=== PATIENT | female | born 2000 | race Asian ===

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

== ENCOUNTER 2020-05-01 11:37 | Inpatient (IN) | payer OTHER ==
[~2020-05-01] VITALS: Ht 167.6 cm; Wt 65.6 kg
[2020-05-01 12:25] LABS: ANION GAP 11 mmol/L (5-15); CALCIUM 9.5 mg/dL (8.5-10.1); CHLORIDE 99 mmol/L (98-107); CREATININE 1.09 mg/dL (0.55-1.02)
[2020-05-01 12:47] LABS: ACETONE, SERUM Large (80mg/dL) (Negative)
[2020-05-01 13:08] LABS: MICROSCOPIC AUTO
--- NOTE | 2020-05-01 13:18 | NUR ---
IV FLUIDS INFUSING AT THIS TIME
[2020-05-01 13:20] LABS: BASOPHILS # (AUTO) 0.03 x10^3/uL (0-0.1); BASOPHILS % (AUTO) 0 % (0-1); EOSINOPHILS # (AUTO) 0.06 x10^3/uL (0-0.4); EOSINOPHILS % (AUTO) 1 % (1-7); LYMPHOCYTES # (AUTO) 1.72 x10^3/uL (1-3.4); LYMPHOCYTES % (AUTO) 26 % (22-44); MD NO; MEAN CORPUSCULAR HEMOGLOBIN 30.9 pg (27.0-34.8); MEAN CORPUSCULAR HGB CONC 33.3 g/dL (32.4-35.8); MEAN CORPUSCULAR VOLUME 92.7 fL (80-100); MEAN PLATELET VOLUME 7.9 fL (7.4-10.4); MONOCYTES # (AUTO) 0.51 x10^3/uL (0.2-0.8); MONOCYTES % (AUTO) 8 % (2-9); NEUTROPHILS # (AUTO) 4.41 x10^3/uL (1.8-6.8); NEUTROPHILS % (AUTO) 66 % (42-75); PLATELET COUNT 347 x10^3/uL (130-400); RED BLOOD COUNT 5.37 x10^6/uL (3.82-5.3); RED CELL DISTRIBUTION WIDTH 12.3 % (9.6-15.2)
[2020-05-01] MEDS ORDERED: SODIUM CHLORIDE 0.9% 1,000ML IVBOLUS ONE (13:30)
[2020-05-01] MEDS ORDERED: SODIUM CHLORIDE 0.9% 1,000 ML IV ONE (14:00)
--- NOTE | 2020-05-01 14:11 | NUR ---
PT TO BE ADMITTED. PT WAS AT [facility] TODAY FOR A RASH AND IT WAS FOUND HER BLOOD SUGAR WAS 280 AT . PT CAME TO ED TO "GET CHECKED OUT". PT SUGAR REMAINED AT 280. PT RECEIEVED 1 LITER BOLUS OF NS WHICH LOWERED SUGAR TO 217. PT TO BE ADMITTED AND PT EDUCATED ON PLAN OF CARE
[2020-05-01] MEDS ORDERED: DIPHENHYDRAMINE 25 MG CAPSULE PO PRN (15:00)
[2020-05-01] MEDS ORDERED: DEXTROSE 50%, 50ML SYRINGE IVPush PRN (15:00)
[2020-05-01] MEDS ORDERED: ONDANSETRON 2MG/ML, 2ML IVPush PRN (15:00)
[2020-05-01] MEDS ORDERED: ONDANSETRON ODT 4 MG PO PRN (15:00)
[2020-05-01] MEDS ORDERED: DOCUSATE 100 MG CAPSULE PO PRN (15:00)
[2020-05-01] MEDS ORDERED: POTASSIUM CHLORIDE 20 MEQ TAB.ER.PRT PO ONE (15:00)
[2020-05-01] MEDS ORDERED: ACETAMINOPHEN 325 MG TABLET PO PRN (15:00)
[2020-05-01] MEDS ORDERED: GLUCAGON 1 MG IM PRN (15:00)
[2020-05-01] MEDS ORDERED: DEXTROSE 4 GM TAB.CHEW PO PRN (15:00)
[2020-05-01 15:55] VITALS: BP 121/51
[2020-05-01] MEDS: SODIUM CHLORIDE 0.9% 1,000 ML IV SCH ×2 (15:58→21:12)
[2020-05-01] MEDS ORDERED: birth control pills (16:32)
[2020-05-01] MEDS: INSULIN LISPRO 100 UNITS/ML, PEN SQ-INSULIN SCH ×2 (17:24→21:12)
[2020-05-01 19:11] LABS: ANION GAP 6 mmol/L (5-15); CALCIUM 8.2 mg/dL (8.5-10.1); CHLORIDE 103 mmol/L (98-107)
[2020-05-01 19:12] LABS: CREATININE 0.94 mg/dL (0.55-1.02)
[2020-05-01 20:21] VITALS: BP 114/76
[2020-05-01] MEDS: SODIUM CHLORIDE FLUSH 10ML SYR IVF SCH (21:13)
[2020-05-02 02:45] VITALS: BP 108/74
[2020-05-02] MEDS: SODIUM CHLORIDE 0.9% 1,000 ML IV SCH ×2 (04:04→10:35)
[2020-05-02 06:10] LABS: BASOPHILS # (AUTO) 0.03 x10^3/uL (0-0.1); BASOPHILS % (AUTO) 1 % (0-1); CHLORIDE 106 mmol/L (98-107); EOSINOPHILS # (AUTO) 0.09 x10^3/uL (0-0.4); EOSINOPHILS % (AUTO) 1 % (1-7); LYMPHOCYTES # (AUTO) 2.66 x10^3/uL (1-3.4); LYMPHOCYTES % (AUTO) 40 % (22-44); MD NO; MEAN CORPUSCULAR HEMOGLOBIN 30.9 pg (27.0-34.8); MEAN CORPUSCULAR HGB CONC 33.4 g/dL (32.4-35.8); MEAN CORPUSCULAR VOLUME 92.6 fL (80-100); MEAN PLATELET VOLUME 7.8 fL (7.4-10.4); MONOCYTES # (AUTO) 0.44 x10^3/uL (0.2-0.8); MONOCYTES % (AUTO) 7 % (2-9); NEUTROPHILS # (AUTO) 3.39 x10^3/uL (1.8-6.8); NEUTROPHILS % (AUTO) 51 % (42-75); PLATELET COUNT 311 x10^3/uL (130-400); RED BLOOD COUNT 4.72 x10^6/uL (3.82-5.3); RED CELL DISTRIBUTION WIDTH 12.4 % (9.6-15.2)
[2020-05-02 06:19] LABS: ALANINE AMINOTRANSFERASE 34 U/L (12-78); ALBUMIN 3.5 g/dL (3.4-5.0); ALKALINE PHOSPHATASE 74 U/L (45-117); ANION GAP 8 mmol/L (5-15); BILIRUBIN,TOTAL 0.8 mg/dL (0.2-1.0); CALCIUM 8.4 mg/dL (8.5-10.1); CREATININE 0.82 mg/dL (0.55-1.02); TOTAL PROTEIN 6.5 g/dL (6.4-8.2)
[2020-05-02 07:58] VITALS: BP 120/82
[2020-05-02] MEDS: INSULIN LISPRO 100 UNITS/ML, PEN SQ-INSULIN SCH ×3 (08:16→16:50)
[2020-05-02] MEDS: SODIUM CHLORIDE FLUSH 10ML SYR IVF SCH (08:18)
[2020-05-02] MEDS ORDERED: TERBINAFINE CRM 1%, 15GM TP SCH (09:00)
[2020-05-02 14:02] VITALS: BP 119/83
[2020-05-02] MEDS ORDERED: INSU100I11 SQ-INSULIN (17:00)
[2020-05-02] MEDS ORDERED: INSU100I13 SQ-INSULIN (17:00)
[2020-05-02] MEDS ORDERED: BLOO1EAC91 XX (17:00)
[2020-05-02] MEDS ORDERED: LANC1KIT XX (17:00)
[2020-05-02] MEDS ORDERED: [UNRECOGNIZED DRUG - CODE] XX (17:00)
[2020-05-02] MEDS ORDERED: INSULIN GLARGINE 100 UNITS/ML, PEN SQ-INSULIN SCH (21:00)
[2020-05-03] MEDS ORDERED: SODIUM CHLORIDE 0.9% 1,000 ML IV SCH (16:00)
== END 2020-05-02 18:27 | disposition home or self-care (01) | DRG 638 ==
LOC: ED 11:47 → INTOOBSV 14:09 → OBSVTOIN 14:09 → EDIP 14:09 → 3N 15:14 → OBSVTOIN 05-02 16:19
PROVIDERS: ADMIT Internal Medicine; ATTEND Internal Medicine
DX: E10.65 Type 1 diabetes mellitus with hyperglycemia (principal); E87.1 Hypo-osmolality and hyponatremia; D75.1 Secondary polycythemia; E86.0 Dehydration; E87.6 Hypokalemia; L98.9 Disorder of the skin and subcutaneous tissue, unspecified
CPT/HCPCS: 36415; 80048; 80053; 81001; 82010; 82962; 83036; 83735; 84443; 85025; 86341; G0378; J1815; J7030